=== PATIENT | male | born 1960 | race Caucasian/White ===

== ENCOUNTER 2024-02-02 05:22 | Day surgery (SDC) | payer MEDICARE, MEDICAID ==
[~2024-02-02] VITALS: Ht 172.7 cm; Wt 92.0 kg
[~2024-02-02 05:22] MED LIST: ANUSOL SUP1 SUPP.REC RC; DEPAKOTE500 MG PO; EPINEPHRINE0.1 MG/ML IJ; FLOMAX 0.40.4 MG/CAP PO; HYDROCORTISON28.4 GM TP; LR 1,000 ML IV SCH; MIRALAX PA17 GM/Dose PO; NEXIUM 40MG40 MG PO; Ondansetron 4 MG/2 ML VIAL IV PRN; PHENERGAN 25 TA25 MG PO; PRILOSEC 20MG20 MG PO; RELAFEN750 MG PO; RISPERDAL 1M1 MG/TAB PO; RISPERIDONE 1 MG PO; TYLENOL EXTRA500 M1 PO; [UNRECOGNIZED DRUG - OTHER] TP; [UNRECOGNIZED DRUG - OTHER] TP
[2024-02-02] MEDS ORDERED: PROTONIX 40MG T40 MG PO (05:43)
[2024-02-02] MEDS ORDERED: MASON NATURAL2000 IU PO (05:46)
[2024-02-02 05:55] VITALS: BP 101/64; PULSE 56; TEMP 97.2
--- NOTE | 2024-02-02 06:19 | NUR ---
0538 Arrived in [facility] Patient ambulatory to bay with steady gait, breathing even and unlabored. Pt is alert and oriented, accompanied by [employer], caregiver. Consents reviewed and signed by the Caregiver. IV established. LR infusion via gravity at [facility]. Call light in reach. Warm blanket provided.
[2024-02-02] MEDS ORDERED: Lidocaine PF 2% (20 MG/ML) 5 ML VIAL ONE (06:44)
[2024-02-02] MEDS ORDERED: Glycopyrrolate 0.2 MG/ML 1 ML VIAL ONE (06:44)
[2024-02-02 07:40] VITALS: BP 109/64; PULSE 60; TEMP 97.9
[2024-02-02 07:45] VITALS: BP 106/75; PULSE 60
[2024-02-02 08:00] VITALS: BP 107/68; PULSE 60
--- NOTE | 2024-02-02 08:13 | NUR ---
0740: pt to bay[facility] - ambulated with standby assist from cart to chair 0742: pt tolerating po intake well 0812: pt and [facility] staff member verbalizes understanding discharge materials MD Alicia unable to speak with pt prior to discharge 0820: pt escorted out via wheelchair to [facility] staff member vehicle
== END 2024-02-02 08:20 | disposition home or self-care (01) ==
LOC: SDCO 05:22
DX: Z12.11 Encounter for screening for malignant neoplasm of colon (principal); K57.30 Diverticulosis of large intestine without perforation or abscess without bleeding
CPT/HCPCS: J2704; J7120